=== PATIENT | male | born 1980 | race Caucasian/White ===

== ENCOUNTER 2021-06-17 18:07 | Inpatient (IN) | payer MEDICAID, SELFPAY ==
[2021-06-17 18:35] VITALS: BP 123/87; PULSE 99; RESP 20; TEMP 36.7; O2SAT 97
[2021-06-17 20:34] LABS: Basophils % 0.3 %; Eosinophils # 0.1 10^3/uL (0.0-0.8); Eosinophils % 1.4 %; Hematocrit 40.7 % (42.0-52.0); Hemoglobin 13.2 g/dL (11.7-16.6); Lymphocytes % 23.2 %; Mean Corpuscular HGB Conc 32.4 g/dL (30.0-36.0); Mean Corpuscular Hemoglobin 29.7 pg (28.0-34.0); Mean Corpuscular Volume 91.7 fL (80-94); Mean Platelet Volume 9.9 fL (7.4-10.4); Monocytes # 0.7 10^3/uL (0.2-0.9); Monocytes % 8.5 %; Neutrophils % 66.4 %; Nucleated Red Blood Cells % 0 %; Platelet Count 207 10^3/cmm (130-400); Red Blood Count 4.44 10^6/uL (4.1-5.3); Red Cell Distribution Width 13.7 % (12.1-15.1); White Blood Count 8.6 10^3/uL (4.0-10.0)
[2021-06-17 20:42] VITALS: BP 93/56; PULSE 88; RESP 15; TEMP 36.8; O2SAT 95
[2021-06-17 21:00] LABS: Alanine Aminotransferase 10 U/L (0-41); Albumin Level 3.5 g/dL (3.5-5.2); Alkaline Phosphatase 97 IU/L (40-130); Anion Gap 13.5 (5-19); Aspartate Amino Transferase 12 U/L (0-40); Blood Urea Nitrogen 7 mg/dL (6-20); C Reactive Protein 143.5 mg/L (0.0-4.9); Calcium 8.5 mg/dL (8.5-10.5); Carbon Dioxide 26 mmol/L (22-29); Chloride 102 mmol/L (98-107); Glomerular Filtration Rate 186.1 mL/min (90-130); Glucose 95 mg/dL (65-115); Osmolality Calculated 284 mOsm/kg (285-295); Potassium 3.5 mmol/L (3.5-5.1); Sodium 138 mmol/L (136-145); Total Bilirubin 0.6 mg/dL (0.15-1.2); Total Protein 6.5 g/dL (6.6-8.7)
[2021-06-17 21:15] LABS: Erythrocyte Sedimentation Rate 48 mm/hr (0-10)
--- NOTE | 2021-06-17 21:52 | PC.NURSE ---
pt requested lidocain and benadryl for his mouth and jaw pain. Order received that lidocain 2% viscus 5ml prn mouth pain and Benadryl 50mg po q4h allergic reaction may be given. tylenol 650mg po also given for pain and trazodone 50mg po given for sleep aide.
[2021-06-17] MEDS: lidocaine 2% viscous 15 mL UDC MUCOUS MEM (22:32)
[2021-06-17] MEDS: acetaminophen 325 mg Tablet 650 MG PO (22:33)
[2021-06-17] MEDS: trazodone 50 mg Tablet PO (22:33)
[2021-06-17] MEDS: diphenhydrAMINE 50 mg Capsule PO (22:34)
--- NOTE | 2021-06-17 23:05 | PC.NURSE ---
pt resting quietly at this time. Pt was given several (4) Jellos per his request, and pt was able to eat them without difficulty.
[2021-06-18] VITALS (81 sets, daily range): BP systolic 100–142; BP diastolic 55–112; PULSE 57–87; RESP 13–31; TEMP 36.7–37; O2SAT 93–100
[2021-06-18] MEDS: lidocaine 2% viscous 15 mL UDC MUCOUS MEM ×6 (01:42→20:36)
[2021-06-18 02:18] LABS: SARS Covid-2 Antigen Negative (Negative)
--- NOTE | 2021-06-18 02:30 | XR_ITS ---
WS: [id number] XR chest 2V* [id number] REASON FOR EXAM: neck pain FINDINGS: The heart and mediastinum are within normal limits. No active pulmonary parenchymal or pleural disease is noted. There is calcified granulomatous disease and both hemithoraces and a small partially calcified nodule in the left midlung field on the PA view. There is a nodular density seen in the right lower lung fi eld which may represent an overlapping of ribs and lung markings. The bony thorax is intact. XR/XR chest 2V* [id number] IMPRESSION: No acute chest abnormality. Possible lung nodules with follow-up imaging orient ed if there is a strong smoking history. CT scan of the chest with contrast wou ld be the most direct.
--- NOTE | 2021-06-18 02:42 | CT_ITS ---
WS: [id number] CT NECK TECHNIQUE: Noncontrast CT of the neck with coronal and sagittal reformatted images. CLINICAL INFORMATION: trismus, Right neck pain,submandibular lymphadenopathy COMPARISON: None. DLP: 666.[address] scans at [facility] use at least one of these dose optimization techniques: automat ed exposure control; mA and/or kV adjustment per patient size (includes targeted exams where dose is matched to clinical indication); or iterative reconstruction. FINDINGS: Contrast not administered which limits evaluation. Soft tissue mass at the right palatine tonsil with localized mass effect. Effacement of the right parapharyngeal fat. Associated thickening of the arye piglottic folds. Partial effacement of the vallecula. This extends into the database development project manager space with los s of the normal fat plane. Involvement of the medial pterygoid. Associated soft tissue thickening ext ending to the tongue base. This can be further evaluated with contrast and direct visualization. Partial effacement of the oropharynx right to left. Supraglottic airway remains patent. Normal glotti s and subglottic airway. Prominent right greater than left level 2-3 cervical lymph nodes. Largest lymph nodes measure approxi mately 12 mm. Tiny amount of fluid in the retropharyngeal space. Parotid glands are normal. Normal submandibular glands. Noncalcified nodule in the left upper lobe me asuring 9 mm. Moderate spondylitic changes cervical spine. Partial opacification right greater than l eft mastoid air cells. Mild mucosal thickening ethmoid air cells. CT/CT neck wo con [id number] IMPRESSION: 1. Suspected soft tissue mass involving the right palatine tonsil with partial effacement of the oropharynx. Soft tissue thickening extends into the masticat or space and aryepiglottic folds. Partial effacement of the vallecula. Findings suspicious for neoplasm or less likely tonsillar infection although relative p aucity of inflammatory changes. Recommend direct visualization. This can be fur ther evaluated with contrast-enhanced neck CT. Contrast not administered today. 2. Bilateral cervical lymphadenopathy right greater than left more prominent a t the second and third cervical lymph node stations. 3. Trace amount of retropharyngeal fluid. 4. Noncalcified nodule left upper lobe measuring 9 mm. Recommend further evalu ation with chest CT.
[2021-06-18] MEDS: acetaminophen 325 mg Tablet 650 MG PO ×3 (06:28→18:06)
--- NOTE | 2021-06-18 06:45 | PM.CONSULT ---
Providers/Reason For Consult Consulting Physician/Specialty*: Sarah Martinez MD/Hospitalist Reason for Consult*: right neck pain Requesting Physician: Azael Powers Attending Physician: Azael Powers MD History of Present Illness History of Present Illness Steve Schreiber is a 40 year old male who initially presented to an outside hospital [facility] with suicidal ideation. Apparently the suicidal ideation was as a result of pain over the right side of his neck and jaw that had been ongoing for about 1 week. Patient states he developed a sore throat, odynophagia, tenderness to palpation over the right side of his face along with a throbbing headache about 1 week ago. Denies any fever. Denies any sick contacts. Also reports cough over the same timeframe. He is saturating well, 95% on room air. No fever chills. Has a past history of IV drug use, however states he quit several years ago. No alcohol intake. No h/o trauma. . Review of Systems General: Reports: 10 or more systems reviewed and unremarkable except in HPI and below Const: Denies: fever(s), chills or body aches Eyes: Denies: change in vision, blurry vision or photophobia ENMT: Reports: hoarseness; Denies: throat pain, enlarged tonsils, odynophagia or nasal congestion Card: Denies: chest pain, palpitations, irregular heart rhythm, edema, swelling of feet/ankles, lightheadedness, pre-syncope, dyspnea on exertion or orthopnea Resp: Denies: dyspnea, productive cough, non-productive cough, wheezing, stridor, pain on inspiration, change in phlegm color, hemoptysis or chest congestion GI: Denies: abdominal pain, nausea, vomiting, hematemesis, coffee ground emesis, dysphagia, heartburn, diarrhea, constipation, GI cramping, change in stool character, hematochezia or melena : Denies: flank pain, dysuria, urinary frequency, urinary urgency, urinary hesitancy or hematuria Musc: Denies: neck pain, back pain, extremity pain, joint swelling, joint warmth or deformity Neuro: Denies: headache(s), numbness in extremities, weakness in extremities, sensory changes, difficulty walking, frequent falls, dizziness, vertigo, behavioral changes, Slurred speech present or seizure-like activity Psych: Denies: anxiety, depression, suicidal ideation or homicidal ideation Endo: Denies: polyuria, polydipsia, tired all the time, cold intolerance or hot flashes Candelario/Lymph: Denies: easy bruising or easy bleeding Meds/Allergies Home Medications and Allergies Home Medications Medication Instructions Recorded Confirmed Last Taken Type gabapentin 300 mg PO TID 06/18/21 06/18/21 Unknown History quetiapine [Seroquel] 100 mg PO BID 06/18/21 06/18/21 Unknown History Allergies Allergy/AdvReac Type Severity Reaction Status Date / Time No Known Allergies Allergy Verified 06/17/21 18:35 Current Medications Current Medications Generic Name Dose Route Start Last Admin Trade Name Freq PRN Reason Stop Dose Admin Acetaminophen 650 mg 06/17/21 18:35 06/18/21 06:28 Acetaminophen 325 Mg Tablet PO 650 mg Q4H PRN Administration MILD PAIN Diphenhydramine HCl 50 mg 06/17/21 21:19 06/17/21 22:34 Diphenhydramine 50 Mg Capsule PO 50 mg Q4H PRN Administration ALLERGIC REACTION Lidocaine HCl 15 ml 06/17/21 21:14 06/18/21 06:28 Lidocaine 2% Viscous 15 Ml Udc MUCOUS MEM 15 ml PRN PRN Administration mouth pain Trazodone HCl 50 mg 06/17/21 18:35 06/17/21 22:33 Trazodone 50 Mg Tablet PO 50 mg BEDTIME PRN Administration SLEEP Vitals/I&O/Wt Last Vital Signs Temp 98.3 F 06/17/21 20:42 Pulse 88 06/17/21 20:42 Resp 16 06/18/21 05:30 BP 93/56 06/17/21 20:42 Pulse Ox 95 06/17/21 20:42 Weight last 48 hrs Weight 113.398 kg Physical Exam Narrative: EXAM NARRATIVE: GEN: Awake, alert and oriented, no acute distress CVS: S1S2 N RS: CTA B/L Abd: Soft, nt/nd , bs+ RESEARCH QUALITY ASSURANCE SPECIALIST: no focal neuro deficits EXT: tenderness to palpation over right mid mandible extrenally, no dental pain or swelling palpable submandibular lymph node A&P Assessment and plan (1) Submandibular lymphadenopathy: Status: Acute (2) Jaw pain: Status: Acute (3) Odynophagia: Status: Acute Additional A&P Information Right jaw pain odynophagia with submandibular lymphadenopathy and tenderness to palpation over mandible. Differentials at this current time include possible strep throat, tonsillitis, sial adenitis, dental abscesses. Obtain labs including CBC CMP ESR CRP, Covid antigen CT imaging of the neck to rule out any underlying abscesses. Contrast CT was recommended, however patient has refused contrast CAT scan. States that he does not want any more needles, he is recovering addict and is very sensitive about needles in his body. Start empiric Augmentin 875 mg twice daily orally and monitor for improvement. Further recommendations based on results of blood work and CT. Less likely to be GCA given patient's age less than 50, no visual complaints at this time, no tenderness to palpation over temporal area. Coding Level of Care Code Acute Mold Cutting Machine Operator for Leonel Moya Diagnoses Submandibular lymphadenopathy R59.0 Jaw pain R68.84 Odynophagia R13.10
--- NOTE | 2021-06-18 07:42 | PC.NURSE ---
Patient taken to CT via w/c accompanied by security and ASSOCIATE VETERINARIAN.
[2021-06-18] MEDS: amoxicillin-clav 875-125 mg Tablet 1 TAB PO (08:00)
--- NOTE | 2021-06-18 12:04 | CT_ITS ---
WS: [id number] CT NECK TECHNIQUE: Contrast-enhanced CT of the neck with coronal and sagittal reformatted images. CLINICAL INFORMATION: possible tonsillar abscess COMPARISON: CT June 18, 2021 DLP: 557.[address] scans at [facility] use at least one of these dose optimization techniques: automat ed exposure control; mA and/or kV adjustment per patient size (includes targeted exams where dose is matched to clinical indication); or iterative reconstruction. FINDINGS: Comparison earlier today noncontrast CT. Dental artifact degrades images at the tongue base. Heteroge neously enhancing enlarged palatine tonsils with a small amount of low-attenuation change in the righ t palatine tonsil along the mucosal surface. No well-defined drainable fluid collection or abscess. D iffuse edema extending into the director of compensation and submandibular spaces. Associated enlargement of the me dial pterygoid likely reactive. Partial effacement of the oropharynx. Partial effacement of the parap haryngeal fat. Diffuse pharyngeal edema with thickening of the right greater than left aryepiglottic folds. Partial effacement of the vallecula. Effacement of the right piriform sinus. Normal glottis and subglottic airway. Small amount of retropharyngeal fluid. Reactive right greater t grant left upper cervical lymph nodes. Findings likely due to tonsillar infection with trace phlegmon i n the right palatine tonsil. No well-defined drainable abscess.Circumferential lucency involving the right most posterior molar with lucency along the lingual surface. Odontogenic infection would be an additional consideration for infection source Lung apices are well aerated. Noncalcified nodule left upper lobe measuring 9 mm unchanged. Partially visualized intracranial contents are normal. Mild mucosal thickening ethmoid air cells. Par tial opacification right mastoid air cells. Tiny right thyroid nodule. CT/CT neck w con* [id number] IMPRESSION: 1. Diffuse heterogeneous enhancement with enlargement of the palatine tonsils likely due to tonsillitis. Tiny amount of low-attenuation change in the right p alatine tonsil suspicious for trace phlegmon. Recommend correlation for infecti on and follow-up to resolution. 2. No drainable abscess or drainable fluid collection. 3. Diffuse edema with narrowing of the oropharynx and hypopharynx. Right to le ft mass effect on the oropharynx. 4. Edema extends into the right parapharyngeal fat, right director of compensation space, an d right submandibular space. 5. Trace retropharyngeal fluid. 6. Reactive upper cervical chain lymph nodes right greater than left. 7. Circumferential lucency involving the right most posterior molar with corti surinder lucency along the lingual surface. Odontogenic infection would be an additi onal consideration 8. Partial opacification right mastoid air cells. 9. Circumferential lucency involving the right most posterior molar with corti surinder lucency along the lingual surface. Odontogenic infection would be an additi onal consideration 10. Noncalcified opacity left upper lobe measuring 9 mm is unchanged
--- NOTE | 2021-06-18 12:22 | PC.NURSE ---
off unit for CT, accompanied by security and PHARMACY SPECIALIST
--- NOTE | 2021-06-18 13:04 | P.HP_ITS ---
Providers/Chief Complaint Admitting Physician: Azael Powers MD Chief Complaint: Jaw Pain SI HPI NPU History of Present Illness Steve Schreiber is a 40 year old male who presented to an outside hospital endorsing pain, being off of his medication and needing assistance. He had expressed to a technology professional that he needed medical help but also needed to see a psychiatrist because he was having thoughts to cut himself with the intent to . He presented to the outside hospital endorsing locked jaw, not being able to eat and recent hospitalization at [facility]. He was agitated ended up needing intervention for his agitation. He endorsed suicidality and being off of his medication for 5 days. He was transferred to [facility] and was admitted to the neuropsychiatric unit for definitive treatment of those issues. Immediately on arrival his concerns about not being able to open his mouth appeared valid. Hospitalist consult was requested where some peritonsillar abnormalities were noted. Studies and further examination by other providers identified need for intervention with IV antibiotics. He presents today reporting that he has been psychiatrically admitted multiple times. He reports he is new to his area and so has not established outpatient services. He reports that he is on Seroquel and BuSpar. Seroquel he reports he takes at night and BuSpar he reports he takes for anxiety. He endorses previous but none recently. He endorses smoking about a pack of cigarettes a day, alcohol once in a while, marijuana daily, but denies any illicit drug use othe rwise for the past 2 years. He has been to a rehab but he never had a DUI. He reports that he was trying to get help for his issues with his mouth and poor oral health. But could not get it. He reports that they started getting angry with him for demanding getting help which led to them labeling him aggressive and him being put on a hold. He does not recall stating that he was going to kill himself but more likely stating that if something does not happen to help with his mouth he might do something. We discussed the risk benefits and alternatives of restarting his psychiatric medications and he understood and agreed to proceed as is documented in this note. Psychiatric history: As above. Substance abuse history: As above. Family history: He denies mental health or addiction issues on either side of the family and denies suicide attempts or completions on either side of the family. Developmental history: He denies any issues with his mother's or delivery and learn to walk and talk and met his developmental milestones on time. He denied needing speech therapy, learning support, emotional report or special education classes when he went to school. Psychosocial history: He reports that his parents were together when he was born and he has 1 sibling. He reports that his childhood was all right and he denied any emotional, physical or sexual abuse. He reports that he reached the ninth grade in high school and ultimately got his GED. He endorses being a heterosexual with his longest relationship being not long. He never been , he has a 20-year- old son, he is never in the and he denies any significant christian belief system. 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 He currently lives in apartment. Legal history: She reports being in senior living too many times to count. His longest time in senior living was 13-1/2 years. Medical history: Outside of this peritonsillar finding which is unclear if etiology he denies any other major medical problems. Meds NPU Home Medications Medication Instructions Recorded Confirmed Last Taken Type gabapentin 300 mg PO TID 06/18/21 06/18/21 Unknown History quetiapine [Seroquel] 100 mg PO BID 06/18/21 06/18/21 Unknown History Allergies Allergy/AdvReac Type Severity Reaction Status Date / Time No Known Allergies Allergy Verified 06/17/21 18:35 Mental Status Exam MSE Comments: This is an obese white male with hospital scrubs on with limited grooming and adequate eye contact. Significant tattooing on exposed skin including face. No abnormal movements except for mild psychomotor retardation. Cooperative with exam in mild distress. Speech was limited with inability to really move his lips and his mouth. Mood described as okay I guess, affect subdued. Thought process organized, thought content: Patient denied suicidal or homicidal ideation, there were no delusions reported or noted, he denied any auditory or visual hallucinations. Attention and concentration were intact and memory was reliable but none were formally tested. He is alert and oriented x3. Insight and judgment appear fair and impulse control appears limited. Vitals/I&O/Wt Last Vital Signs Temp 98.3 F 06/17/21 20:42 Pulse 88 06/17/21 20:42 Resp 16 06/18/21 05:30 BP 93/56 06/17/21 20:42 Pulse Ox 95 06/17/21 20:42 Weight last 48 hrs Weight 113.398 kg Data NPU : 06/17/21 20:20 06/17/21 20:20 A&P Assessment and plan (1) Odynophagia: Status: Acute (2) Jaw pain: Status: Acute (3) Submandibular lymphadenopathy: Status: Acute (4) Anxiety: Status: Acute (5) Mood swings: Status: Acute Additional A&P Information This is a 40-year-old white male with a long history of mental health addiction and legal challenges who presents after his presentation to get his medications restarted psychiatrically and get his jaw disability addressed led to aggressive behaviors and inpatient hospitalization. 1. Continue current medication. We will restart home medication that he had run out of. 2. Appreciate hospitalist and ENT evaluations and will follow recommendation. 3. Due to policy on IVs in the NPU as far safety for the patient as well as other patients on the unit we will transfer patient to medical side for IV antibiotics as determined by Drs. Bates and Johanna. 4. We will continue to see each day and determine whether need to return to the neuropsychiatric unit exists after his need for IV antibiotics and primary medical treatment has resolved. 5. Transfer to medical floor/ICU for definitive treatment of his infectious processes. Attestations NPU Medical Necessity Statement*: Inpatient hospitalization is medically necessary and the clinically appropriate intervention at this time. However is need for IV antibiotics which cannot be performed on the MPU takes jurisdiction and we will transfer him for medical care and psychiatric consultation given his overall presentation. Coding Level of Care Code Acute Wood Drilling Machine Operator for [facility] F[facility] Diagnoses Odynophagia R13.10 Jaw pain R68.84 Submandibular lymphadenopathy R59.0 Anxiety F41.9 Mood swings R45.86
--- NOTE | 2021-06-18 13:54 | P.PN_ITS ---
Subjective Subjective: Interval history: History reviewed. Reports he has trouble swallowing, mainly on the right side. This is only been going on 7 to 10 days. No fever recorded at home but is felt hot. No prior history of throat pain Medications: Reviewed: Yes Vitals/I&O/Wt Last Vital Signs Temp 98.0 F 06/18/21 13:42 Pulse 71 06/18/21 13:42 Resp 16 06/18/21 13:42 BP 104/55 06/18/21 13:42 Pulse Ox 97 06/18/21 13:42 Weight last 48 hrs Weight 113.398 kg Physical Exam Narrative: EXAM NARRATIVE: General exam no apparent distress HEENT: Difficulty with opening oropharynx. Right tonsil appears full/erythematous and enlarged compared to left side with suboptimal exam. Neck demonstrates right submandibular lymphadenopathy tender to palpation Cardiovascular regular rate and rhythm without murmur Lungs clear Abdomen is soft positive bowel sounds Extremities no cyanosis clubbing or edema Data : 06/17/21 20:20 06/17/21 20:20 A&P Assessment and plan (1) Submandibular lymphadenopathy: Secondary to short illness, discomfort I suspect this is secondary to an infectious cause. Cannot rule out peritonsillar abscess Rapid strep, throat culture Continue Augmentin CT with contrast for further evaluation ENT consult for further evaluation of the right tonsil considering noncontrast CT findings Oxycodone as needed for pain Status: Acute (2) Jaw pain: See above Status: Acute (3) Odynophagia: See above Status: Acute Attestations Medical Necessity Statement*: As per primary Coding Level of Care Code Acute Geospatial Technologist for jasmine Moya Diagnoses Submandibular lymphadenopathy R59.0 Jaw pain R68.84 Odynophagia R13.10
--- NOTE | 2021-06-18 14:42 | P.CONIM_ITS ---
Providers/Reason For Consult Consulting Physician/Specialty*: Dr. Harvinder Bates MD Otolaryngology, Head & Neck Surgery Reason for Consult*: Oralpharyngeal mass Airway Attending Physician: Azael Powers MD History of Present Illness History of Present Illness Steve Schreiber is a 40 year old male with a one week h/o right sided sore throat and tenderness. The patient was admitted to the neuropsych unit where he was noted to have trismus. The patient underwent a non contrast neck CT and I was consulted to evaluate a right oropharyngeal mass effect. The patient c/o right sided neck pain and difficulty swallowing. He denies any shortness of breath, noted fever, chest pain, or other related symptoms and is o/w without c/o. The patient denies any noted palliative or provocative factors and describes his symptoms as moderately severe. Review of Systems General: Reports: 10 or more systems reviewed and unremarkable except in HPI and below Meds/Allergies Home Medications and Allergies Home Medications Medication Instructions Recorded Confirmed Last Taken Type gabapentin 300 mg PO TID 06/18/21 06/18/21 Unknown History quetiapine [Seroquel] 100 mg PO BID 06/18/21 06/18/21 Unknown History Allergies Allergy/AdvReac Type Severity Reaction Status Date / Time No Known Allergies Allergy Verified 06/17/21 18:35 Current Medications Current Medications Generic Name Dose Route Start Last Admin Trade Name Freq PRN Reason Stop Dose Admin Acetaminophen 650 mg 06/17/21 18:35 06/18/21 12:01 Acetaminophen 325 Mg Tablet PO 650 mg Q4H PRN Administration MILD PAIN Diphenhydramine HCl 50 mg 06/17/21 21:19 06/17/21 22:34 Diphenhydramine 50 Mg Capsule PO 50 mg Q4H PRN Administration ALLERGIC REACTION Lidocaine HCl 15 ml 06/17/21 21:14 06/18/21 12:01 Lidocaine 2% Viscous 15 Ml Udc MUCOUS MEM 15 ml PRN PRN Administration mouth pain Trazodone HCl 50 mg 06/17/21 18:35 06/17/21 22:33 Trazodone 50 Mg Tablet PO 50 mg BEDTIME PRN Administration SLEEP Vitals/I&O/Wt Last Vital Signs Temp 98.0 F 06/18/21 13:42 Pulse 71 06/18/21 13:42 Resp 16 06/18/21 13:42 BP 104/55 06/18/21 13:42 Pulse Ox 97 06/18/21 13:42 Weight last 48 hrs Weight 113.398 kg Physical Exam Const: COMMON NORMALS: no acute distress and patient oriented x3 HENMT: COMMON NORMALS: normocephalic, atraumatic, external ears normal and moist oral mucous membranes HEAD & SCALP: normocephalic and atraumatic EXTERNAL EAR: Yes external ears normal MOUTH: Normal oral and palatal mucosa present, lip normal and tongue normal OTHER: There is 1 cm interincisor trismus; the patient's oral exam is difficult secondary to trismus. Neuro: COMMON NORMALS: patient oriented x3 Data Other Data: Attestation for Other Data: I personally reviewed and interpreted the following: Other data: Neck CT with IV Contrast A&P Additional A&P Information Impression: Right oralpharyngeal cellulitis without evidence of a drainable abscess on today's CT scan Plan: - I recommend IV Penicillin/Flagyl or Zosyn with Dr. Mendoza - The airway appears patent now, but will observe for any deterioration in the patient's clinical status - I will follow with you - I recommend that the patient f/u with his Dentist after discharge as this may be odontogenic in origin and may recur without eventually addressing his teeth. Consult Attestations Medical Necessity Statement: I was consulted to assess and make recommendations. Procedures Procedure Narrative Procedure Note: verbal informed consent was obtained; the patient's nose was sprayed with a 50/50 Afrin/Lidocaine mix; a flexible fiberoptic nasopharyngolaryngoscope was passed through the patient's nose and was used to inspect the patient's nasoppharynx, oralpharynx, hypopharynx, and larynx - there was significant swelling of the patient's right tonsil; the larynx was visualized and his airway was found to be widely patent; the laryngeal exam was o/w normal. Coding Level of Care Code Acute Plastic Molding Operator for Leonel Moya
[2021-06-18] MEDS: oxyCODONE 5 mg IR Tab/Cap PO ×2 (15:10→19:20)
[2021-06-18] MEDS: sodium chloride 0.9% 1,000 ML 75 ML IV (17:42)
[2021-06-18] MEDS: BuSPIRONE 10 mg Tablet 15 MG PO (20:35)
[2021-06-18] MEDS: quetiapine 100 mg Tablet 200 MG PO (20:35)
[2021-06-18] MEDS: piperacillin-tazobactam 3.375 GM in sodium chloride 0.9% (plus) 50 ML IV (20:36)
[2021-06-19] VITALS (89 sets, daily range): BP systolic 79–124; BP diastolic 41–79; PULSE 51–92; RESP 10–23; TEMP 36.7–36.9; O2SAT 93–98
[2021-06-19] MEDS: oxyCODONE 5 mg IR Tab/Cap PO ×6 (00:29→21:48)
[2021-06-19] MEDS: piperacillin-tazobactam 3.375 GM in sodium chloride 0.9% (plus) 50 ML IV ×2 (04:20→15:44)
[2021-06-19 05:33] LABS: Basophils % 0.6 %; Eosinophils # 0.1 10^3/uL (0.0-0.8); Eosinophils % 2.8 %; Hematocrit 50.8 % (42.0-52.0); Hemoglobin 16.3 g/dL (11.7-16.6); Lymphocytes # 1.6 10^3/uL (0.8-4.8); Lymphocytes % 35.3 %; Mean Corpuscular HGB Conc 32.1 g/dL (30.0-36.0); Mean Corpuscular Hemoglobin 29.6 pg (28.0-34.0); Mean Corpuscular Volume 92.2 fL (80-94); Mean Platelet Volume 10.8 fL (7.4-10.4); Monocytes # 0.4 10^3/uL (0.2-0.9); Monocytes % 8.9 %; Neutrophils # 2.41 10^3/uL (1.8-7.7); Neutrophils % 52.2 %; Nucleated Red Blood Cells % 0 %; Platelet Count 126 10^3/cmm (130-400); Red Blood Count 5.51 10^6/uL (4.1-5.3); Red Cell Distribution Width 13.3 % (12.1-15.1); White Blood Count 4.6 10^3/uL (4.0-10.0)
[2021-06-19 05:47] LABS: Alanine Aminotransferase 11 U/L (0-41); Albumin Level 3.3 g/dL (3.5-5.2); Alkaline Phosphatase 85 IU/L (40-130); Blood Urea Nitrogen 4 mg/dL (6-20); Carbon Dioxide 23 mmol/L (22-29); Chloride 105 mmol/L (98-107); Globulin 2.3 g/dL (1.3-4.6); Glomerular Filtration Rate 150.8 mL/min (90-130); Glucose 79 mg/dL (65-115); Osmolality Calculated 284 mOsm/kg (285-295); Sodium 139 mmol/L (136-145); Total Bilirubin 0.3 mg/dL (0.15-1.2); Total Protein 5.6 g/dL (6.6-8.7)
[2021-06-19 05:49] LABS: Anion Gap 15.1 (5-19); Aspartate Amino Transferase 14 U/L (0-40); Potassium 4.1 mmol/L (3.5-5.1)
[2021-06-19 05:57] LABS: Slide Review Slide Review Perform
[2021-06-19 08:27] LABS: Rapid Strep A Test Negative (Negative)
[2021-06-19] MEDS: BuSPIRONE 10 mg Tablet 15 MG PO ×3 (08:27→21:48)
[2021-06-19] MEDS: sodium chloride 0.9% 1,000 ML 75 ML IV ×2 (08:28→21:49)
[2021-06-19 08:40] LABS: Vancomycin Trough 43.7 ug/mL (10-15)
[2021-06-19] MEDS: lidocaine 2% viscous 15 mL UDC MUCOUS MEM ×2 (11:33→16:26)
[2021-06-19] MEDS: acetaminophen 325 mg Tablet 650 MG PO ×2 (11:43→19:53)
--- NOTE | 2021-06-19 12:57 | P.PN_ITS ---
Subjective Subjective: Interval history: Psychiatric concerns, followed by psychiatry currently.Steve reports is still hurts when he opens his mouth and he still has a sore throat. It is about the same as yesterday. He would like some cough medicine. Medications: Reviewed: Yes Vitals/I&O/Wt Last Vital Signs Temp 98.6 F 06/18/21 20:50 Pulse 88 06/19/21 08:30 Resp 18 06/19/21 09:11 BP 111/77 06/19/21 09:00 Pulse Ox 98 06/19/21 09:11 06/18/21 06/19/21 06/19/21 22:59 06:59 14:59 Intake Total 700 / 700 550 / 1250 1530 / 1530 Output Total 325 / 325 Balance 700 / 700 550 / 1250 1205 / 1205 Weight last 48 hrs Weight 113.398 kg Physical Exam Narrative: EXAM NARRATIVE: General exam no apparent distress HEENT: Difficulty with opening oropharynx. Right tonsil appears full/erythematous and enlarged compared to left side with suboptimal exam. Neck demonstrates right submandibular lymphadenopathy tender to palpation Cardiovascular regular rate and rhythm without murmur Lungs clear Abdomen is soft positive bowel sounds Extremities no cyanosis clubbing or edema Data : 06/19/21 04:32 06/19/21 04:32 Micro: Microbiology 06/19/21 08:31 Blood Culture - Preliminary Blood SPECIMEN COLLECTED 06/19/21 08:25 Blood Culture - Preliminary Blood SPECIMEN COLLECTED A&P Assessment and plan (1) Submandibular lymphadenopathy: Continue vancomycin and Zosyn Awaiting rapid strep, throat culture CT demonstrated oral pharyngeal cellulitis with no drainable abscess when performed on 06/18. ENT has evaluated and is following Oxycodone as needed for pain Status: Acute (2) Jaw pain: See above Status: Acute (3) Odynophagia: See above Status: Acute Additional A&P Information Needs continued hospitalization for IV antibiotics for cellulitis oropharyngeal area. Attestations Medical Necessity Statement*: Needs continued hospital stay for IV antibiotics related to cellulitis Coding Level of Care Code Acute Computer Trainer for g Fwd Diagnoses Submandibular lymphadenopathy R59.0 Jaw pain R68.84 Odynophagia R13.10
--- NOTE | 2021-06-19 16:27 | P.PN_ITS ---
Subjective Subjective: Interval history: 40 yo wm who is on Zosyn/Vancomycin day #1 for right oralpharyngeal/tonsillar cellulitis. The patient reports continued tenderness of the right neck, but feels improved and can open his mouth better than he could yesterday. He denies any shortness of breath, odynophagia, or other related symptoms. Vitals/I&O/Wt Last Vital Signs Temp 98.6 F 06/18/21 20:50 Pulse 88 06/19/21 08:30 Resp 18 06/19/21 13:41 BP 117/77 06/19/21 13:00 Pulse Ox 98 06/19/21 09:11 06/19/21 06/19/21 06/19/21 06:59 14:59 22:59 Intake Total 550 / 1250 1770 / 1770 Output Total 325 / 325 Balance 550 / 1250 1445 / 1445 Weight last 48 hrs Weight 113.398 kg Physical Exam Const: COMMON NORMALS: no acute distress and patient oriented x3 GENERAL APPEARANCE: cooperative HENMT: COMMON NORMALS: hearing grossly normal bilaterally and external ears normal HEAD & SCALP: normal to inspection FACE & SINUS: normal facial exam EXTERNAL EAR: Yes external ears normal MOUTH: tongue normal TEETH & GINGIVA: Yes poor dentition THROAT: other (There is swelling and erythema or the right tonsil; there is 2cm trismus.) Eye: COMMON NORMALS: conjunctivae normal CONJUNCTIVA: Yes conjunctivae normal SCLERA: sclerae normal Neck/C-Spine: COMMON NORMALS: no lymphadenopathy and supple GENERAL: Yes other (There is no swelling or mass of the neck.) Neuro: COMMON NORMALS: patient oriented x3 Data : 06/19/21 04:32 06/19/21 04:32 Micro: Microbiology 06/18/21 07:30 MRSA Culture - Final Nose 06/19/21 08:31 Blood Culture - Preliminary Blood SPECIMEN COLLECTED 06/19/21 08:25 Blood Culture - Preliminary Blood SPECIMEN COLLECTED A&P Additional A&P Information Impression: 40 yo wm with right peritonsillar/oralpharyngeal cellulitis with improved exam on IV Zosyn/Vancomycin Plan: - I recommend continued IV antibiotics until trismus has resolved, then resume po antibiotics - I recommend a f/u Neck CT with IV contrast in 24 - 48 hours - I will follow with you - I will perform a f/u laryngoscopy in 24-48 hours Attestations Medical Necessity Statement*: I was consulted to assist with airway/infection. Coding Level of Care Code Acute Lockstitch Lining Maker for Leonel Moya
--- NOTE | 2021-06-19 16:47 | PM.NPN ---
Subjective NPU Subjective: Interval history: I met with the patient in his hospital room along with the sitter. He says that physically he is improving and he can open his jaw more, though he says his pain is still 10/10 in severity. He denies fever, chills, sweating. He says he was able to eat better today, and ate some solid food (a bread roll). He feels that the Seroquel and BuSpar have been helpful for him. No medication side effects. He is sleeping better and his anxiety is somewhat reduced. He denies feeling depressed or suicidal. Energy is low. He is feeling more hopeful about the future. Dr. Powers reports that the patient got angry today when someone opened his putting for him, rather than allowing him to open it himself. He has the concern that the patient may still have an unstable mood and low frustration tolerance. Mental Status Exam MSE Comments: The patient was sitting in bed, and moderately fidgety. Cooperative with the exam. Speech was at a regular rate and rhythm. He was alert and oriented x3. Relatively attentive. Mood is improving, though he has anger outbursts. Affect was pleasant. Thought process was logical and goal-directed. Thought content: Denies auditory and visual hallucinations; denies delusions; denies suicidal and homicidal ideation. Insight is limited and impulse control and judgment are also limited at this point. Vitals/I&O/Wt Last Vital Signs Temp 98.2 F 06/19/21 16:59 Pulse 51 L 06/19/21 16:59 Resp 18 06/19/21 17:44 BP 124/79 06/19/21 16:59 Pulse Ox 98 06/19/21 16:59 06/19/21 06/19/21 06/19/21 06:59 14:59 22:59 Intake Total 550 / 1250 1770 / 1770 480 / 2250 Output Total 325 / 325 Balance 550 / 1250 1445 / 1445 480 / 1925 Weight last 48 hrs Weight 113.398 kg Data NPU : 06/19/21 04:32 06/19/21 04:32 Micro: Microbiology 06/18/21 07:30 MRSA Culture - Final Nose 06/19/21 08:31 Blood Culture - Preliminary Blood SPECIMEN COLLECTED 06/19/21 08:25 Blood Culture - Preliminary Blood SPECIMEN COLLECTED Microbiology 06/18/21 07:30 Nose MRSA Culture - Final 06/19/21 08:31 Blood Blood Culture - Preliminary SPECIMEN COLLECTED 06/19/21 08:25 Blood Blood Culture - Preliminary SPECIMEN COLLECTED Attestations NPU Medical Necessity Statement*: N/A - please refer to primary team note for medical necessity. Coding Level of Care Code Acute Forging Die Sinker for Leonel Moya
[2021-06-19] MEDS: guaiFENesin-codeine UDC 10 mL 5 ML PO (18:06)
[2021-06-19 20:24] LABS: Vancomycin Random 8.9 ug/mL (20.0-40.0)
[2021-06-19] MEDS: quetiapine 100 mg Tablet 200 MG PO (21:48)
[2021-06-19 22:00] LABS: HIV 1 & 2 Antibody Non-Reactive (Non-Reactiv); HIV 1 & 2 Antigen Non-Reactive (Non-Reactiv)
[2021-06-20] VITALS (10 sets, daily range): BP systolic 84–121; BP diastolic 54–85; PULSE 59–84; RESP 14–18; TEMP 36.4–36.8; O2SAT 96–98
[2021-06-20] MEDS: piperacillin-tazobactam 3.375 GM in sodium chloride 0.9% (plus) 50 ML IV ×4 (00:10→22:49)
--- NOTE | 2021-06-20 05:16 | PM.PN ---
Subjective Subjective: Interval history: 40 yo wm who is on day #2 of Zosyn for right oral pharyngeal/tonsillar cellulitis. The patient reports that he feels improved, and is able to open his mouth better than he could on admission. The patient denies any noted fever, chest pain, or other related symptoms, and is o/w without c/o. Vitals/I&O/Wt Last Vital Signs Temp 97.5 F L 06/20/21 03:55 Pulse 71 06/20/21 03:55 Resp 16 06/20/21 03:55 BP 102/66 06/20/21 03:55 Pulse Ox 97 06/20/21 03:55 06/19/21 06/19/21 06/20/21 14:59 22:59 06:59 Intake Total 1770 / 1770 2490 / 4260 50 / 4310 Output Total 325 / 325 Balance 1445 / 1445 2490 / 3935 50 / 3985 Physical Exam Const: COMMON NORMALS: no acute distress and patient oriented x3 HENMT: COMMON NORMALS: normocephalic, atraumatic and Normal external nose present HEAD & SCALP: normocephalic and atraumatic FACE & SINUS: normal facial exam NOSE: Normal external nose present MOUTH: lip normal, tongue normal and other (There is 2 cm trismus; the swelling/erythema of right tonsil improved.) Eye: COMMON NORMALS: EOMs intact bilaterally, conjunctivae normal and no scleral icterus CONJUNCTIVA: Yes conjunctivae normal Neck/C-Spine: COMMON NORMALS: full ROM and supple GENERAL: Yes other (There is tenderness of the right jugulodigastric area, but no masses.) Neuro: COMMON NORMALS: patient oriented x3 Data : 06/19/21 04:32 06/19/21 04:32 Micro: Microbiology 06/18/21 07:30 MRSA Culture - Final Nose 06/19/21 08:31 Blood Culture - Preliminary Blood SPECIMEN COLLECTED 06/19/21 08:25 Blood Culture - Preliminary Blood SPECIMEN COLLECTED A&P Additional A&P Information Impression: 40 yo wm who is on day #2 of Zosyn with slowly improving exam Plan: - I recommend a f/u neck CT with IV contrast today or tomorrow - Continue IV Zosyn - convert to po if CT clear and exam improves - I will follow with you Attestations Medical Necessity Statement*: I was consulted to assist with management Coding Level of Care Code Acute Government Operations Consultant for Leonel Moya
--- NOTE | 2021-06-20 07:24 | PC.NURSE ---
I report the low bp to the nurse. /
[2021-06-20] MEDS: BuSPIRONE 10 mg Tablet 15 MG PO ×3 (09:35→22:48)
[2021-06-20] MEDS: lidocaine 2% viscous 15 mL UDC MUCOUS MEM ×3 (09:36→20:00)
[2021-06-20] MEDS: oxyCODONE 5 mg IR Tab/Cap PO ×4 (09:36→22:47)
[2021-06-20] MEDS: guaiFENesin-codeine UDC 10 mL 5 ML PO ×2 (09:36→20:03)
[2021-06-20] MEDS: sodium chloride 0.9% 1,000 ML 75 ML IV (10:46)
--- NOTE | 2021-06-20 13:36 | PM.PN ---
Subjective Subjective: Interval history: Steve reports he is doing better. Jaw and back of throat still hurt but less so and he is able to open his jaw more. Medications: Reviewed: Yes Vitals/I&O/Wt Last Vital Signs Temp 97.7 F 06/20/21 11:18 Pulse 60 06/20/21 12:33 Resp 16 06/20/21 11:18 BP 121/85 06/20/21 12:33 Pulse Ox 97 06/20/21 11:18 06/19/21 06/20/21 06/20/21 22:59 06:59 14:59 Intake Total 2490 / 4260 530 / 4753 Balance 2490 / 3935 530 / 4465 Physical Exam Narrative: EXAM NARRATIVE: General exam no apparent distress HEENT: Able to open his mouth more fully. Still some erythema right side, tonsillar pillar. Neck demonstrates right submandibular lymphadenopathy tender to palpation Cardiovascular regular rate and rhythm without murmur Lungs clear Abdomen is soft positive bowel sounds Extremities no cyanosis clubbing or edema Data : 06/19/21 04:32 06/19/21 04:32 Micro: Microbiology 06/19/21 08:31 Blood Culture - Preliminary Blood NEGATIVE TO DATE 06/19/21 08:25 Blood Culture - Preliminary Blood NEGATIVE TO DATE 06/18/21 07:30 MRSA Culture - Final Nose A&P Assessment and plan (1) Submandibular lymphadenopathy: Continue Zosyn. MRSA PCR negative. Rapid strep, HIV negative CT demonstrated oral pharyngeal cellulitis with no drainable abscess when performed on 06/18. ENT has evaluated and is following. Repeat CT scan of neck with contrast tomorrow. Oxycodone as needed for pain Status: Acute (2) Jaw pain: See above Status: Acute (3) Odynophagia: See above Status: Acute Additional A&P Information Needs continued hospitalization for IV antibiotics for cellulitis oropharyngeal area. Attestations Medical Necessity Statement*: Needs continued hospitalization for IV antibiotics secondary to cellulitis oropharyngeal area. Coding Level of Care Code Acute Flight Radio Officer for Leonel Moya Diagnoses Submandibular lymphadenopathy R59.0 Jaw pain R68.84 Odynophagia R13.10
[2021-06-20] MEDS: acetaminophen 325 mg Tablet 650 MG PO (16:44)
[2021-06-20] MEDS: albuterol 8 gm MDI 2 PUFF INHALATION (21:27)
[2021-06-20] MEDS: quetiapine 100 mg Tablet 200 MG PO (22:47)
[2021-06-21] VITALS (8 sets, daily range): BP systolic 93–131; BP diastolic 62–80; PULSE 61–83; RESP 15–18; TEMP 36.4–36.7; O2SAT 93–99
[2021-06-21 03:31] LABS: Basophils % 0.8 %; Eosinophils # 0.2 10^3/uL (0.0-0.8); Eosinophils % 3.7 %; Hematocrit 40.4 % (42.0-52.0); Hemoglobin 12.9 g/dL (11.7-16.6); Lymphocytes % 40.3 %; Mean Corpuscular HGB Conc 31.9 g/dL (30.0-36.0); Mean Corpuscular Hemoglobin 29.7 pg (28.0-34.0); Mean Corpuscular Volume 92.9 fL (80-94); Mean Platelet Volume 10.3 fL (7.4-10.4); Monocytes # 0.3 10^3/uL (0.2-0.9); Monocytes % 5.8 %; Neutrophils # 2.38 10^3/uL (1.8-7.7); Nucleated Red Blood Cells % 0 %; Platelet Count 221 10^3/cmm (130-400); Red Blood Count 4.35 10^6/uL (4.1-5.3); Red Cell Distribution Width 13.2 % (12.1-15.1); White Blood Count 4.9 10^3/uL (4.0-10.0)
[2021-06-21] MEDS: albuterol 8 gm MDI 2 PUFF INHALATION (04:03)
--- NOTE | 2021-06-21 05:02 | P.PN_ITS ---
Subjective Subjective: Interval history: 40 yo wm who is antibiotic day #3 for right peritonsillar/oropharyngeal cellulitis. The patient reports that he feels improved compared to yesterday. There is no other c/o. Vitals/I&O/Wt Last Vital Signs Temp 97.7 F 06/21/21 00:00 Pulse 68 06/21/21 04:00 Resp 15 06/21/21 04:00 BP 114/71 06/21/21 00:00 Pulse Ox 93 06/21/21 04:00 06/20/21 06/20/21 06/21/21 14:59 22:59 06:59 Intake Total 2181.25 / 2181.25 290 / 2471.25 50 / 2521.25 Balance 2181.25 / 2181.25 290 / 2471.25 50 / 2521.25 Physical Exam Const: COMMON NORMALS: no acute distress, average body habitus and patient oriented x3 HENMT: COMMON NORMALS: atraumatic, external ears normal, Normal nasal mucous membranes and turbinates present and moist oral mucous membranes HEAD & SCALP: atraumatic NOSE: Normal nasal mucous membranes and turbinates present EXTERNAL EAR: Yes external ears normal TEETH & GINGIVA: Yes other (There is approximately 3cm trismus.) Neuro: COMMON NORMALS: patient oriented x3 Data : 06/21/21 02:19 06/19/21 04:32 Micro: Microbiology 06/18/21 07:30 Group A Streptococcus Rapid Screen - Preliminary Throat 06/19/21 08:31 Blood Culture - Preliminary Blood NEGATIVE TO DATE 06/19/21 08:25 Blood Culture - Preliminary Blood NEGATIVE TO DATE A&P Additional A&P Information Impression: 40 yo wm who is Antibiotic day #3 for right peritonsillar/oralpharyngeal cellulitis with generally improving exam Plan: - There is a f/u Neck CT scheduled for today - I will make further recommendations once this becomes available. Attestations Medical Necessity Statement*: I was consulted to help manage the patient's airway and infection. Coding Level of Care Code Acute Behavioral Health Counselor for Leonel Moya
[2021-06-21] MEDS: piperacillin-tazobactam 3.375 GM in sodium chloride 0.9% (plus) 50 ML IV (06:33)
--- NOTE | 2021-06-21 07:00 | CT_ITS ---
WS: [id number] CT NECK TECHNIQUE: Contrast-enhanced CT of the neck with coronal and sagittal reformatted images. CLINICAL INFORMATION: follow up early abscess COMPARISON: June 18, 2021 DLP: 555.[address] scans at [facility] use at least one of these dose optimization techniques: automat ed exposure control; mA and/or kV adjustment per patient size (includes targeted exams where dose is matched to clinical indication); or iterative reconstruction. FINDINGS: Previously described edema and mass effect involving the palatine tonsils and oropharyngeal airway ex tending into the hypopharynx has improved with normal symmetric airway today. Beam hardening artifact from dental hardware degrades some images. However, there is a new area of low-attenuation change involving the right medial pterygoid suspiciou s for small phlegmon developing abscess. This measures approximately 8 x 6.5 mm. Associated periphera l enhancement. Persistent mass effect of the right parapharyngeal fat. Suspected phlegmon/abscess is adjacent to the right posterior molar cortical lucency and may be odontogenic in origin versus tonsil litis as previously described. Recommend dental correlation. Small amount of inflammatory changes inv olving the platysma and right buccal soft tissues more prominent today. Persistent reactive upper cer vical chain and submandibular lymph nodes. Vallecula and piriform sinuses are normal today. Normal subglottic airway. Partial opacification righ t mastoid air cells. Paranasal sinuses are well aerated. Trace retropharyngeal fluid is improved. Sta ble noncalcified 9 mm opacity in the left upper lobe. Partially visualized intracranial contents are normal. Small nodule right thyroid measuring [address]/CT neck w con* [id number] IMPRESSION: 1. Interval improvement in the oropharyngeal and tongue base inflammation and edema. Airway is normal and symmetric today with improved pharyngeal mass effec t and edema. 2. New low-attenuation change in the right medial pterygoid suspicious for phl egmon/developing abscess measuring 8.3 x 6.5 mm. This is adjacent to the previo usly described right posterior molar cortical lucency and may be odontogenic in origin. 3. Improved/resolved retropharyngeal fluid. 4. Airway is symmetric today within normal glottic and subglottic airway. 5. Persistent reactive cervical lymph nodes in the upper cervical chain and bangura bmandibular space. 6. Partial opacification right mastoid air cells. 7. Stable opacity left upper lobe measuring 9 mm. Recommend [address] f ollow-up. Message left for David Spencer MD at 06/21/2021 9:34 AM.
[2021-06-21] MEDS: oxyCODONE 5 mg IR Tab/Cap PO ×2 (07:34→12:25)
[2021-06-21] MEDS: guaiFENesin-codeine UDC 10 mL 5 ML PO (07:34)
[2021-06-21] MEDS: lidocaine 2% viscous 15 mL UDC MUCOUS MEM ×2 (07:34→12:25)
[2021-06-21] MEDS: BuSPIRONE 10 mg Tablet 15 MG PO ×2 (07:35→14:53)
[2021-06-21] MEDS: iohexol 300 mg/mL 100 mL Btl IV (09:01)
--- NOTE | 2021-06-21 12:12 | P.PN_ITS ---
Subjective NPU Subjective: Interval history: Interval history: I met with the patient in his hospital room along with the sitter. He says that his jaw has continued to improve. Pain is now 8/10 in severity, down from 10/10. He is able to open his mouth wider and can eat better. Mood has improved. Anxiety is now 3/10 in severity and depression is 0/10, meaning he does not feel depressed at all now. He denies any wish to , urge to harm or kill himself, or urges to harm others. Energy is good and he is hopeful about returning home. He has future oriented goals. We talked about the statements he made the other day. He said he was just trying to communicate that he really needed his psychiatric medications. He does feel that the Seroquel is helping him with sleep and anxiety, and that the BuSpar is helping him with anxiety. He has some concern that the Seroquel will cause him to gain weight. No medication side effects at this time, however. We talked about the need for someone to follow his medication when he gets back to [place]. I spoke with the patient's nurse, who said that he has been pleasant and respectful today. He has been managing frustrations well, which is an improvement over the last few days. Mental Status Exam MSE Comments: The patient was sitting in bed, and in a much better mood than he was 2 days ago when I saw him before.. Cooperative with the exam. Speech was at a regular rate and rhythm. He was alert and oriented x3. Relatively attentive. Mood is much improved. Affect was pleasant. He was joking around. Thought process was logical and goal-directed. Thought content: Denies auditory and visual hallucinations; denies delusions; denies suicidal and homicidal ideation. Insight is improved and impulse control and judgment are also improved at this point. Vitals/I&O/Wt Last Vital Signs Temp 97.8 F 06/21/21 11:22 Pulse 83 06/21/21 11:22 Resp 18 06/21/21 11:22 BP 124/80 06/21/21 11:22 Pulse Ox 99 06/21/21 11:22 06/20/21 06/21/21 06/21/21 22:59 06:59 14:59 Intake Total 290 / 2471.25 50 / 2521.25 410 / 410 Balance 290 / 2471.25 50 / 2521.25 410 / 410 Data NPU : 06/21/21 02:19 06/19/21 04:32 Micro: Microbiology 06/18/21 07:30 Group A Streptococcus Rapid Screen - Preliminary Throat 06/19/21 08:31 Blood Culture - Preliminary Blood NEGATIVE TO DATE 06/19/21 08:25 Blood Culture - Preliminary Blood NEGATIVE TO DATE Microbiology 06/18/21 07:30 Throat Group A Streptococcus Rapid Screen - Preliminary 06/19/21 08:31 Blood Blood Culture - Preliminary NEGATIVE TO DATE 06/19/21 08:25 Blood Blood Culture - Preliminary NEGATIVE TO DATE A&P Additional A&P Information Impression: 40 yo wm who is Antibiotic day #4 for right p eritonsillar/oralpharyngeal cellulitis with generally improving physical exam. Depression is resolved and anxiety is at a low level, which is manageable for him. He has no suicidal or homicidal ideation. Recommendation from psychiatry: Patient is psychiatrically stable and can be discharged when medically appropriate. Attestations NPU Medical Necessity Statement*: N/A - please refer to primary team note for medical necessity. Coding Level of Care Code Acute Cartridge Belt Puncher for Leonel Moya
--- NOTE | 2021-06-21 14:16 | PC.SOCIAL ---
Addendum entered by Helga Novak, RN 06/21/21 15:47: Provider is unwilling to sign the letter of medical necessity since he has not seen him. Tried to call patient to follow up with him but unable to reach and not able to leave a voicemail. Original Note: Dr Spencer talked to provider at [facility] Dr Chapa. He agreed to see patient per Dr Spencer on 06/24/2021 at 10am. Once we learned patient lives at [facility] multiple attempts were made to set up the outpatient appt with a provider closer to home. All attempts were refused. Tried Lisa at [place] [facility] and their providers are not available and dont take D[facility]. Unwilling to see. Dr Trevino in [facility] is out the next few weeks and no availability until after Jul 24. Dr Loc [facility] unable to see patient. Suggested we try [facility]. Tried this provider Jame Esposito and he is out 2 1/2 weeks. Tried [facility] only one in [place] and this provider does not see patients that have DIONNA. Only private pay. [facility] transport indicates that a letter of medical necessity is needed by the oral surgeon in order to approve the trip that is over [address] Spencer text MUSIC DEPARTMENT CHAIR or the Coordinator he previously talked to at [place] and she will try to get letter signed. Sent information for letter to be signed to fax number provided.
--- NOTE | 2021-06-21 14:23 | P.DS_ITS ---
Discharge Providers Date of Admission: 06/17/21 18:07 Date of Discharge: June 21, 2021 Attending Provider at Admission: Azael Powers MD Attending Provider at Discharge: David Spencer MD Diagnoses at Discharge Discharge Diagnosis (1) Submandibular lymphadenopathy: Status: Acute (2) Jaw pain: Status: Acute (3) Odynophagia: Status: Acute Reason for Visit Reason for Visit: Jaw Pain SI Hospital Course Hospital Course Steve was transferred to our hospital from an outlying hospital for suicidal ideation. Psychiatry accepted him. He reported he was suicidal because his mouth hurt so bad. He was found to have lymphadenopathy submandibularly and oropharyngeal cellulitis. He was transferred to the hospital on medicine sheldon and broad-spectrum antibiotics were initiated. ENT was consulted. CT scan did not demonstrate abscess at that time. He received IV antibiotics over the next [address] scan was repeated. This demonstrated significant improvement in swelling. It demonstrated a right pterygoid phlegmon or developing abscess 8 x 6 mm in diameter. Patient had clinically improved greatly. Had no difficulty swallowing. Lymphadenopathy had improved. He had been afebrile with a normal white count. ENT suggested oral surgery services. I called them to discuss and only outpatient follow-up could be obtained. I discussed this with the patient and considering his clinical improvement we will have him continue Augmentin as an outpatient and follow-up in [place] with Dr. Fraga on Thursday. I discussed the importance of this follow-up with the patient, and we arranged transport for him. I discussed and/or permanent disability could occur if follow-up was not kept or he did not follow instructions regarding taking medication. He will also follow-up with psychiatry. Physical Exam Narrative: EXAM NARRATIVE: General exam no apparent distress Oropharynx with slight amount of erythema posteriorly but much improved Cardiovascular regular rate and rhythm without murmur Lungs clear Abdomen is soft with positive bowel sounds Extremities no cyanosis clubbing or edema. Discharge Data Data Completed and Pending: Completed Studies During Hospitalization Category Date Time Status CT neck w con* 70 491 Routine Cat Scan 06/18/21 12:[address] neck w con* 70 491 Routine Cat Scan 06/21/21 07:[address] neck wo con 70 490 Routine Cat Scan 06/18/21 02:42 Completed XR chest 2V* 7104 6 Routine Exams 06/18/21 02:30 Completed Pending at discharge Category Date Time Status Blood Culture Sta t Lab 06/19/21 08:31 Results Streptococcus Cul ture Group A Routi ne Lab 06/18/21 07:30 Results Labs from last 24 hours 06/21/21 02:19 WBC 4.9 RBC 4.35 Hgb 12.9 Hct 40.4 L MCV 92.9 MCH 29.7 MCHC 31.9 RDW 13.2 Plt Count 221 MPV 10.3 Neut % (Auto) 49.0 Lymph % (Auto) 40.3 [place] % (Auto) 5.8 Eos % (Auto) 3.7 Baso % (Auto) 0.8 Neut # (Auto) 2.38 Lymph # (Auto) 2.0 [place] # (Auto) 0.3 Eos # (Auto) 0.2 Baso # (Auto) 0.0 Nucleated RBC % (a uto) 0 Nucleated RBCs # 0.0 Vitals: Last Vital Signs Temp 97.8 F 06/21/21 11:22 Pulse 83 06/21/21 11:22 Resp 18 06/21/21 12:25 BP 124/80 06/21/21 11:22 Pulse Ox 99 06/21/21 11:22 Discharge Plan Discharge Patient Disposition: Home Condition: Stable Prescriptions: New quetiapine 100 mg Tablet 200 mg PO BEDTIME Qty: 60 RF: 0 oxycodone 5 mg Tablet 5 mg PO Q4H PRN (Reason: Moderate Pain) Qty: 10 RF: 0 buspirone 15 mg tablet 10 mg PO TID Qty: 90 RF: 0 Augmentin 875-125 mg tablet 1 tab PO BID Qty: 14 RF: 0 Lidocaine Viscous 2 % Solution 15 ml mucous membrane Q3H PRN (Reason: mouth pain) Qty: 100 RF: 0 Discontinued quetiapine [Seroquel] 100 mg Tablet 100 mg PO BID RF: 0 gabapentin 300 mg Tablet 300 mg PO TID RF: 0 Discharge Orders: Discharge Order (Routine); Ordered 06/21/21 Ordered By: David Spencer Referrals: Dr. Loc Ballesteros DDS [Other] - 1-3 days (Dr Spencer spoke with oral surgeon Dr Chapa on 06/21/[address] Chapa agreed to see you at 10am on Thursday06/24/2021. You will need to bring someone with you in case provider decides to do a procedure that day. Please bring all discharge information with you to appointment. [facility] Transport will be scheduled for this appointment. They will take you to appointment and You will call them when you are ready to be picked up. [facility] Transport main line: [phone]. Helga Novak will call you once the transport is confirmed with your trip ID number. Please be sure to keep your phone with you at all times through the remainder of the day.) Discharge Diet: Regular Discharge Activity: Increase activity as tolerated Patient Instructions: Buspirone (By mouth), Amoxicillin/Clavulanate Potassium (By mouth), Oxycodone, Rapid Release (By mouth), Quetiapine (By mouth), Lidocaine Patch (On the skin), Opioid Safety Activity Restrictions/Additional Instructions: Take all medicine as prescribed. Return for any concerns. Make sure you keep your appointment with the oral surgeon, Thursday at 10 AM in [place]. Follow-up with psychiatry per their instruction as an outpatient. This should be in approximately 1 week. Discharge Attestations Time Spent in Discharge Care*: greater than 30 min Quality Metrics Clinical Quality Measures During this hospital stay, did patient experience: None Coding Level of Care Code Acute Chg FW DC note Diagnoses Submandibular lymphadenopathy R59.0 Jaw pain R68.84 Odynophagia R13.10
--- NOTE | 2021-06-21 15:14 | PC.NURSE ---
Gave patient discharge orders. Patient verbalized understanding. Meds to bed delivered patient's meds. IV was removed. Patient wheeled downstairs to car.
--- NOTE | 2021-06-21 16:03 | PC.SOCIAL ---
Talked with [employer] [facility]. We will have to set up transport for this appt with Oral surgeon etc. She has agreed to transport him on Thursday for the 10am appt. Talked with patient and he is aware. Also Dr Spencer asked that it be communicated to patient that he had a lung nodule noted on CT Scan to lung. Stable nodule but Radiologist recommends follow up scan to be done in 6 months. Explained all of this to patient in detail. He was told Dr Spencer wants him to establish with PCP in [facility] so they can follow this closely. He verbalized understanding and repeated back I understand everything you explained and will get a doctor . Provided patient this nurse cell number in case he has questions. Transport arranged and communication delivered as ordered.
== END 2021-06-21 15:21 | disposition home or self-care (01) | DRG 153 ==
LOC: NP 06-18 07:14 → ICU 06-18 16:25 → MEDSURG 06-19 09:54
PROVIDERS: Student in an Organized Health Care Education/Training Program; Admitting Provider Psychiatry & Neurology Psychiatry; Visit Provider Internal Medicine
DX: J39.1 Other abscess of pharynx (principal); J36 Peritonsillar abscess; R45.851 Suicidal ideations; F41.9 Anxiety disorder, unspecified; F17.210 Nicotine dependence, cigarettes, uncomplicated; F12.90 Cannabis use, unspecified, uncomplicated; R59.0 Localized enlarged lymph nodes; F39 Unspecified mood [affective] disorder; R91.8 Other nonspecific abnormal finding of lung field
CPT/HCPCS: 12345; 36415; 70490; 70491; 71046; 80053; 80202; 85025; 85651; 86140; 87040; 87081; 87426; 87641; 87806; 87880; 94640; J2543; J3370; J3535; J7030; J7040; Q0163; Q9967

== ENCOUNTER 2021-06-28 11:23 | Inpatient (IN) | payer MEDICAID, SELFPAY ==
[2021-06-28 11:35] VITALS: BMI 27.1
[2021-06-28 11:53] VITALS: BP 114/82; PULSE 64; RESP 16; TEMP 36.7; O2SAT 98
[2021-06-28] MEDS: acetaminophen 325 mg Tablet 650 MG PO ×2 (12:46→20:27)
--- NOTE | 2021-06-28 13:06 | PC.NURSE ---
40 year old male direct admit from [facility] for dental pain and lower jaw pain. Patient explained that he had his tooth pulled about 4 days ago. When the provider at [facility] was talking to him he made a statement about hearing voices telling him to jump in front of vehicles. Patient is pleasant, denies drug use other than THC. No skin issues noted.
--- NOTE | 2021-06-28 13:10 | PM.NHP ---
Providers/Chief Complaint Admitting Physician: Brian Cullen MD Chief Complaint: SI HPI NPU History of Present Illness Steve Schreiber is a 40 year old male, well-known to me, with a history of depression, anxiety and hallucinations who was transferred from the [facility] ED with reports of command hallucinations telling him to jump in front of a car and reports that he actually did try to jump in front of a car. He was medically stabilized and cleared by the ED prior to discharge. The ED note states: The patient is a 40-year-old gentleman who presents to the emergency room today with complaints of having some increased right dental pain and right lower jaw pain. He states he had a tooth pulled 3 to 4 days ago. He was on antibiotics and was given pain pills. States that the pain is still present. He is concerned because he has noted a little bit of swelling in that area. No fever or chills. He is also here because he has had an increase in his auditory hallucinations. He states the voices are telling him to jump out in front of a car, which apparently he tried sometime earlier today. He states he is taking his medications. He does smoke marijuana, but denies other drug use. Drinks alcohol occasionally. No other self injury or self-harm. Records from [facility] on 06/28/2021 show normal EKG with sinus rhythm. Laboratory results on 06/27/2021 show normal CBC, CMP, TSH and UA. Acetaminophen, salicylates, and alcohol were all negative. Urine drug screen was positive for oxycodone and marijuana. The patient was admitted to the neuropsychiatric unit for definitive treatment of these issues. I am quite familiar with the patient as I followed him on the medical floor last week. He reports that he initially did well after discharge from the medical floor, and did have oral surgery on Thursday to remove his tooth. He states that his pain is continuing at about the same level however. He says that his hallucinations increased in the last few days, as described above. All he also tells me that he attempted suicide by trying to step in front of a car. He says that his mood has been pretty good, without much depression. The information from the patient's 06/18/2021 it admission H&P is included below. Past psychiatric, substance abuse, family history, social history, and legal history are all essentially unchanged. For the medical history, see further below, Dr. Spencer's discharge hospital course from 06/21/2021. Steve Schreiber is a 40 year old male who presented to an outside hospital endorsing pain, being off of his medication and needing assistance. He had expressed to a innersole maker that he needed medical help but also needed to see a psychiatrist because he was having thoughts to cut himself with the intent to . He presented to the outside hospital endorsing locked jaw, not being able to eat and recent hospitalization at [facility]. He was agitated ended up needing intervention for his agitation. He endorsed suicidality and being off of his medication for 5 days. He was transferred to [facility] and was admitted to the neuropsychiatric unit for definitive treatment of those issues. Immediately on arrival his concerns about not being able to open his mouth appeared valid. Hospitalist consult was requested where some peritonsillar abnormalities were noted. Studies and further examination by other providers identified need for intervention with IV antibiotics. He presents today reporting that he has been psychiatrically admitted multiple times. He reports he is new to his area and so has not established outpatient services. He reports that he is on Seroquel and BuSpar. Seroquel he reports he takes at night and BuSpar he reports he takes for anxiety. He endorses previous but none recently. He endorses smoking about a pack of cigarettes a day, alcohol once in a while, marijuana daily, but denies any illicit drug use otherwise for the past 2 years. He has been to a rehab but he never had a DUI. He reports that he was trying to get help for his issues with his mouth and poor oral health. But could not get it. He reports that they started getting angry with him for demanding getting help which led to them labeling him aggressive and him being put on a hold. He does not recall stating that he was going to kill himself but more likely stating that if something does not happen to help with his mouth he might do something. We discussed the risk benefits and alternatives of restarting his psychiatric medications and he understood and agreed to proceed as is documented in this note. Psychiatric history: As above. Substance abuse history: As above. Family history: He denies mental health or addiction issues on either side of the family and denies suicide attempts or completions on either side of the family. Developmental history: He denies any issues with his mother's or delivery and learn to walk and talk and met his developmental milestones on time. He denied needing speech therapy, learning support, emotional report or special education classes when he went to school. Psychosocial history: He reports that his parents were together when he was born and he has 1 sibling. He reports that his childhood was all right and he denied any emotional, physical or sexual abuse. He reports that he reached the ninth grade in high school and ultimately got his GED. He endorses being a heterosexual with his longest relationship being not long. He never been , he has a 20-year-old son, he is never in the and he denies any significant bahai belief system. 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 He currently lives in apartment. Legal history: She reports being in half-way too many times to count. His longest time in half-way was 13-1/2 years. Medical history: Outside of this peritonsillar finding which is unclear if etiology he denies any other major medical problems. Dr. Spencer's note on 06/21/2021 states: Steve was transferred to our hospital from an outlying hospital for suicidal ideation. Psychiatry accepted him. He reported he was suicidal because his mouth hurt so bad. He was found to have lymphadenopathy submandibularly and oropharyngeal cellulitis. He was transferred to the hospital on medicine sheldon and broad-spectrum antibiotics were initiated. ENT was consulted. CT scan did not demonstrate abscess at that time. He received IV antibiotics over the next [address] scan was repeated. This demonstrated significant improvement in swelling. It demonstrated a right pterygoid phlegmon or developing abscess 8 x 6 mm in diameter. Patient had clinically improved greatly. Had no difficulty swallowing. Lymphadenopathy had improved. He had been afebrile with a normal white count. ENT suggested oral surgery services. I called them to discuss and only outpatient follow-up could be obtained. I discussed this with the patient and considering his clinical improvement we will have him continue Augmentin as an outpatient and follow-up in [place] with Dr. Fraga on Thursday. I discussed the importance of this follow-up with the patient, and we arranged transport for him. I discussed and/or permanent disability could occur if follow-up was not kept or he did not follow instructions regarding taking medication. He will also follow-up with psychiatry. Review of Systems General: Reports: 10 or more systems reviewed and unremarkable except in HPI and below Meds NPU Home Medications Medication Instructions Recorded Confirmed Last Taken Type amoxicillin-pot clavulanate 1 tab PO BID #14 tab 06/21/21 Unknown Rx [Augmentin] buspirone 10 mg PO TID #90 tab 06/21/21 Unknown Rx lidocaine HCl [Lidocaine Viscous] 15 ml MUCOUS MEMBRANE Q3H PRN #100 06/21/21 Unknown Rx ml oxycodone 5 mg PO Q4H PRN #10 tab 06/21/21 Unknown Rx quetiapine 200 mg PO BEDTIME #60 tab 06/21/21 Unknown Rx Allergies Allergy/AdvReac Type Severity Reaction Status Date / Time No Known Allergies Allergy Verified 06/17/21 18:35 Mental Status Exam MSE Comments: I met with the patient in his room, and he was appropriately groomed and dressed wearing hospital scrubs, calm, cooperative, interactive, and made fairly good eye contact. Mild psychomotor agitation. Speech is at a regular rate and rhythm, normal volume, some articulation difficulties, not pressured. Alert, oriented to person, place, time, situation. Attention and concentration were intact to exam. Memory is intact to exam and autobiographical data. Mood is depressed and anxious. Affect is pleasant. Thought process is logical and goal-directed. Thought content: Describes auditory but not visual hallucinations. No delusions noted. He says he still has some suicidal ideation, no homicidal ideation. Insight and judgment appear to be fair. Vitals/I&O/Wt Last Vital Signs Temp 98.0 F 06/28/21 14:00 Pulse 64 06/28/21 14:00 Resp 16 06/28/21 14:00 BP 114/82 06/28/21 14:00 Pulse Ox 98 06/28/21 14:00 Weight last 48 hrs Weight 90.718 kg A&P Assessment and plan (1) Acute psychosis: Status: Acute (2) Methamphetamine use: Status: Acute (3) Mood swings: Status: Acute (4) Anxiety: Status: Acute Additional A&P Information Steve Schreiber is a 40 year old male, well-known to me, with a history of depression, anxiety and hallucinations who was transferred from the [facility] ED with reports of command hallucinations telling him to jump in front of a car and reports that he actually did try to jump in front of a car 1. Continue current medication. 2. Continue every 15 minute checks for safety. 3. Encourage individual, group and milieu therapies. 4. Encourage sober living treatment after discharge at the highest level of care to which he is willing to commit. Involuntary Hold Information 96 Hour Hold: 96 Hour Involuntary Admission: No Attestations NPU Medical Necessity Statement*: Psychiatric hospitalization is medically necessary to prevent access to lethal means, to reevaluate medication, and to coordinate a safe discharge. Patient will be in the hospital for over 2 midnights. Likely length of stay is 3 to 5 days. Coding Level of Care Code Acute Engineering Technical Analyst for Leonel Moya Diagnoses Acute psychosis F23 Methamphetamine use F15.10 Mood swings R45.86 Anxiety F41.9
[2021-06-28 14:00] VITALS: BP 114/82; PULSE 64; RESP 16; TEMP 36.7; O2SAT 98
[2021-06-28] MEDS: ibuprofen 800 mg tablet PO (15:13)
[2021-06-28] MEDS: BuSPIRONE 10 mg Tablet 15 MG PO ×2 (15:13→20:26)
[2021-06-28] MEDS: amoxicillin-clav 875-125 mg Tablet 1 TAB PO (17:44)
[2021-06-28 20:09] VITALS: BP 102/66; PULSE 59; RESP 18; TEMP 36.7; O2SAT 98
[2021-06-28] MEDS: quetiapine 100 mg Tablet 300 MG PO (20:27)
[2021-06-28] MEDS: hyDROXYzine 25 mg Capsule 50 MG PO (20:28)
[2021-06-28] MEDS: trazodone 50 mg Tablet PO (20:28)
[2021-06-28] MEDS: lidocaine 2% viscous 15 mL UDC MUCOUS MEM (20:28)
[2021-06-28] MEDS: guaiFENesin-dextromethorphan UDC 10 mL PO (20:29)
--- NOTE | 2021-06-28 20:35 | PC.NURSE ---
Patient request PRN meds : Trazodone 50mg PO, Vistraril 50mg ( sleep and anxiety ) Lidocaine Viscous 2%/10 ml for mouth soreness, Robitussin 10ml for cough. All meds given.
[2021-06-29 06:00] VITALS: BP 96/64; PULSE 62; RESP 16; TEMP 36.4; O2SAT 98
[2021-06-29] MEDS: BuSPIRONE 10 mg Tablet 15 MG PO ×2 (08:17→15:16)
[2021-06-29] MEDS: amoxicillin-clav 875-125 mg Tablet 1 TAB PO (08:17)
[2021-06-29 14:00] VITALS: BP 113/77; PULSE 71; RESP 18; TEMP 36; O2SAT 98
--- NOTE | 2021-06-29 15:45 | PM.NDC ---
Diagnoses at Discharge Discharge Diagnosis (1) Acute psychosis: Status: Resolved (2) Methamphetamine use: Status: Chronic (3) Mood swings: Status: Chronic (4) Anxiety: Status: Chronic Reason for Visit Reason for Visit: SI Brief History: Steve Schreiber is a 40 year old male, well-known to me, with a history of depression, anxiety and hallucinations who was transferred from the [facility] ED with reports of command hallucinations telling him to jump in front of a car and reports that he actually did try to jump in front of a car. He was medically stabilized and cleared by the ED prior to discharge. The ED note states: The patient is a 40-year-old gentleman who presents to the emergency room today with complaints of having some increased right dental pain and right lower jaw pain. He states he had a tooth pulled 3 to 4 days ago. He was on antibiotics and was given pain pills. States that the pain is still present. He is concerned because he has noted a little bit of swelling in that area. No fever or chills. He is also here because he has had an increase in his auditory hallucinations. He states the voices are telling him to jump out in front of a car, which apparently he tried sometime earlier today. He states he is taking his medications. He does smoke marijuana, but denies other drug use. Drinks alcohol occasionally. No other self injury or self-harm. Records from [facility] on 06/28/2021 show normal EKG with sinus rhythm. Laboratory results on 06/27/2021 show normal CBC, CMP, TSH and UA. Acetaminophen, salicylates, and alcohol were all negative. Urine drug screen was positive for oxycodone and marijuana. The patient was admitted to the neuropsychiatric unit for definitive treatment of these issues. I am quite familiar with the patient as I followed him on the medical floor last week. He reports that he initially did well after discharge from the medical floor, and did have oral surgery on Thursday to remove his tooth. He states that his pain is continuing at about the same level however. He says that his hallucinations increased in the last few days, as described above. All he also tells me that he attempted suicide by trying to step in front of a car. He says that his mood has been pretty good, without much depression. The information from the patient's 06/18/2021 it admission H&P is included below. Past psychiatric, substance abuse, family history, social history, and legal history are all essentially unchanged. For the medical history, see further below, Dr. Spencer's discharge hospital course from 06/21/2021. Steve Schreiber is a 40 year old male who presented to an outside hospital endorsing pain, being off of his medication and needing assistance. He had expressed to a dairy farm manager that he needed medical help but also needed to see a psychiatrist because he was having thoughts to cut himself with the intent to . He presented to the outside hospital endorsing locked jaw, not being able to eat and recent hospitalization at [facility]. He was agitated ended up needing intervention for his agitation. He endorsed suicidality and being off of his medication for 5 days. He was transferred to [facility] and was admitted to the neuropsychiatric unit for definitive treatment of those issues. Immediately on arrival his concerns about not being able to open his mouth appeared valid. Hospitalist consult was requested where some peritonsillar abnormalities were noted. Studies and further examination by other providers identified need for intervention with IV antibiotics. He presents today reporting that he has been psychiatrically admitted multiple times. He reports he is new to his area and so has not established outpatient services. He reports that he is on Seroquel and BuSpar. Seroquel he reports he takes at night and BuSpar he reports he takes for anxiety. He endorses previous but none recently. He endorses smoking about a pack of cigarettes a day, alcohol once in a while, marijuana daily, but denies any illicit drug use otherwise for the past 2 years. He has been to a rehab but he never had a DUI. He reports that he was trying to get help for his issues with his mouth and poor oral health. But could not get it. He reports that they started getting angry with him for demanding getting help which led to them labeling him aggressive and him being put on a hold. He does not recall stating that he was going to kill himself but more likely stating that if something does not happen to help with his mouth he might do something. We discussed the risk benefits and alternatives of restarting his psychiatric medications and he understood and agreed to proceed as is documented in this note. Psychiatric history: As above. Substance abuse history: As above. Family history: He denies mental health or addiction issues on either side of the family and denies suicide attempts or completions on either side of the family. Developmental history: He denies any issues with his mother's or delivery and learn to walk and talk and met his developmental milestones on time. He denied needing speech therapy, learning support, emotional report or special education classes when he went to school. Psychosocial history: He reports that his parents were together when he was born and he has 1 sibling. He reports that his childhood was all right and he denied any emotional, physical or sexual abuse. He reports that he reached the ninth grade in high school and ultimately got his GED. He endorses being a heterosexual with his longest relationship being not long. He never been , he has a 20-year-old son, he is never in the and he denies any significant worship belief system. 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 He currently lives in apartment. Legal history: She reports being in long-term too many times to count. His longest time in long-term was 13-1/2 years. Medical history: Outside of this peritonsillar finding which is unclear if etiology he denies any other major medical problems. Dr. Spencer's note on 06/21/2021 states: Steve was transferred to our hospital from an outlying hospital for suicidal ideation. Psychiatry accepted him. He reported he was suicidal because his mouth hurt so bad. He was found to have lymphadenopathy submandibularly and oropharyngeal cellulitis. He was transferred to the hospital on medicine sheldon and broad-spectrum antibiotics were initiated. ENT was consulted. CT scan did not demonstrate abscess at that time. He received IV antibiotics over the next [address] scan was repeated. This demonstrated significant improvement in swelling. It demonstrated a right pterygoid phlegmon or developing abscess 8 x 6 mm in diameter. Patient had clinically improved greatly. Had no difficulty swallowing. Lymphadenopathy had improved. He had been afebrile with a normal white count. ENT suggested oral surgery services. I called them to discuss and only outpatient follow-up could be obtained. I discussed this with the patient and considering his clinical improvement we will have him continue Augmentin as an outpatient and follow-up in [place] with Dr. Fraga on Thursday. I discussed the importance of this follow-up with the patient, and we arranged transport for him. I discussed and/or permanent disability could occur if follow-up was not kept or he did not follow instructions regarding taking medication. He will also follow-up with psychiatry. Hospital Course Hospital Course Steve Schreiber is a 40 year old male, well-known to me, with a history of depression, anxiety and hallucinations who was transferred from the [facility] ED with reports of command hallucinations telling him to jump in front of a car and reports that he actually did try to jump in front of a car. He was admitted to the neuropsychiatric unit for definitive treatment of these issues. When he arrived, he reported that one of the main reasons he wanted to come back to the hospital, was to get back on his medicine, which she has not been taking the last few days. There were some mild psychotic symptoms present initially which resolved with the medication being restarted. He was receptive to treatment team recommendations and showed modest improvement and was able to contract for safety prior to discharge. During the hospitalization, patient had routine laboratory studies which were within normal limits except for few outliers. Additionally there was a general medical evaluation which was also within normal limits and revealed no new acute processes. Dr. Spencer came by to see him in follow-up from his throat and neck issues from last week, and said that he looked much improved, with much less swelling inside of his mouth. He felt the patient was progressing nicely. Discharge Summary: At the time of discharge, psychosis and lethality were denied. It is not clear how accurate the patient's reports of command hallucinations actually were. He has a pattern of saying what he believes he needs to say, in order to get his needs met. Mood and anxiety were well managed. Patient endorsed a plan to avoid all drugs of abuse and follow-up with the aftercare recommendations of the treatment team. Patient was evaluated and deemed to be absent credible lethality, and had achieved the maximum benefit from an inpatient hospitalization, so was discharged. Involuntary Hold Information 96 Hour Hold: 96 Hour Involuntary Admission: No Mental Status Exam MSE Comments: I met with the patient in his room, and he was appropriately groomed and dressed wearing hospital scrubs, calm, cooperative, interactive, and made fairly good eye contact. Mild psychomotor agitation. Speech is mildly pressured. Alert, oriented to person, place, time, situation. Attention and concentration were intact to exam. Memory is intact to exam and autobiographical data. Mood is depressed and anxious. Affect is pleasant. Thought process is logical and goal-directed. Thought content: Denies auditory and visual hallucinations. No delusions noted. He says he has no suicidal or homicidal ideation. Insight and judgment appear to be fair. Discharge Data Vitals: Last Vital Signs Temp 96.8 F L 06/29/21 14:00 Pulse 71 06/29/21 14:00 Resp 18 06/29/21 14:00 BP 113/77 06/29/21 14:00 Pulse Ox 98 06/29/21 14:00 Discharge Plan Discharge Patient Disposition: Home Condition: Stable Prescriptions: New quetiapine 100 mg Tablet 300 mg PO BEDTIME 15 Days Qty: 15 RF: 0 Continued amoxicillin-pot clavulanate [Augmentin] 875-125 mg tablet 1 tab PO BID Qty: 14 RF: 0 Changed buspirone 15 mg tablet 15 mg PO TID 15 Days Qty: 45 RF: 0 Discontinued quetiapine 100 mg Tablet 200 mg PO BEDTIME Qty: 60 RF: 0 lidocaine HCl [Lidocaine Viscous] 2 % Solution 15 ml mucous membrane Q3H PRN (Reason: mouth pain) Qty: 100 RF: 0 Discharge Orders: Discharge Order (Routine); Ordered 06/29/21 Ordered By: Brian Cullen Discharge Diet: Usual diet Discharge Activity: Resume usual activity Patient Instructions: Opioid Safety Discharge Attestations NPU Time Spent in Discharge Care*: less than 30 min Specific Discharge Activities: Specific discharge activities: educating patient, discussing with oil field caser/social workers/dc planners, documenting/other paperwork and evaluating patient/reviewing data Status at Discharge: Cognitive status at discharge: cognitively intact, Behavioral status at discharge: cooperative and can be uncooperative, Functional status at discharge: independent ambulation Overall status at discharge: patient is back to baseline Coding Level of Care Code Acute Chg FW DC note Diagnoses Acute psychosis F23 Methamphetamine use F15.10 Mood swings R45.86 Anxiety F41.9
[2021-06-29 16:11] VITALS: BP 113/77; PULSE 71; RESP 18; TEMP 36; O2SAT 98
== END 2021-06-29 17:20 | disposition home or self-care (01) | DRG 885 ==
PROVIDERS: Admitting Provider Psychiatry & Neurology Child & Adolescent Psychiatry; Visit Provider Psychiatry & Neurology Child & Adolescent Psychiatry
DX: F23 Brief psychotic disorder (principal); F15.951 Other stimulant use, unspecified with stimulant-induced psychotic disorder with hallucinations; R45.851 Suicidal ideations; K12.2 Cellulitis and abscess of mouth; F39 Unspecified mood [affective] disorder; F32.9 Major depressive disorder, single episode, unspecified; F41.9 Anxiety disorder, unspecified; F17.210 Nicotine dependence, cigarettes, uncomplicated; F12.90 Cannabis use, unspecified, uncomplicated